=== PATIENT | male | born 1975 | race Caucasian/White ===

== ENCOUNTER 2020-02-11 19:14 | Emergency (ER) | payer BC, SELFPAY ==
[2020-02-11 19:15] VITALS: BP 186/106; PULSE 98; RESP 18; TEMP 36.6; O2SAT 98; BMI 26.6
[2020-02-11 20:22] LABS: Bacteria 0 SEEN /hpf (None Seen); Mucous, Urine 0 SEEN /hpf (<or=2+); Squamous Epithelial Cells - UA 0 SEEN /hpf (0-5)
[2020-02-11 20:32] LABS: Color, Urine Yellow (Yellow); Glucose, Dipstick Normal (Normal); Ketone-Dipstick Negative (Negative); Leukocyte Esterase-Dipstick 100 /ul (Negative); Nitrite-Dipstick Negative (Negative); Occult Blood-Urine 250 /ul (Negative); Protein-Dipstick 30 mg/dl (Negative); Specific Gravity, Urine 1.015 (1.002-1.030); Urine Bilirubin Dipstick Negative (Negative); Urine Clarity Cloudy (Clear); Urine Urobilinogen Normal (Normal); Urine pH 6.5 (5.0 - 8.0)
[2020-02-11 20:34] LABS: Absolute Lymphocyte Count 3.15 X10^3/uL (0.83-4.51); Absolute Neutrophil Count 4.8 X10^3/uL (2.0-7.7); Basophil# 0.07 X10^3/uL; Basophil% 0.8 % (0-1); Eosinophils% 2.2 % (0-5); Hematocrit 44.9 % (40-54); Hemoglobin 15.8 g/dL (13.0-16.5); Lymphocyte # 3.15 X10^3/ul (4.0); Lymphocyte % 34.6 % (19-41); Mean Corp Hgb Conc 35.2 g/dL (32-36); Mean Corpuscular Hgb 33.4 pg (27.0-32.0); Mean Corpuscular Volume 94.9 fL (80-94); Mean Platelet Vol. 8.5 fl (6.2-12.0); Monocyte# 0.85 X10^3/uL; Monocyte% 9.3 % (0-10); NRBC Flagged by Analyzer 0 % (0-5); Neutrophil # 4.81 X10^3/uL (2.7-7.7); Neutrophil % 52.8 % (47-70); Platelet Count 368 K/mm3 (150-450); RBC Distribution Width CV 11.9 % (11.6-14.6); RBC Distribution Width SD 40.4 fl (35.1-43.9); Red Blood Count 4.73 M/mm3 (4.6-6.2); White Blood Count 9.1 K/mm3 (4.4-11.0)
[2020-02-11 20:40] LABS: White Blood Cells 10-25 SEEN /hpf (0-5)
[2020-02-11 20:41] LABS: Red Blood Cells-Urine > 100 SEEN /hpf (0-5)
[2020-02-11] MEDS: 0.9% Normal Saline 1,000 ML 1000 ML IV (20:45)
[2020-02-11] MEDS: Morphine 4 MG/ML Syringe IV (20:46)
[2020-02-11] MEDS: Ondansetron 4 MG/2 ML Vial IV (20:46)
[2020-02-11 20:49] LABS: ALB/GLOB Ratio 1.4 RATIO (0.9-2.4); AST(SGOT) 14 U/L (15-37); Alanine Aminotransfer ALT/SGPT 26 U/L (16-61); Albumin, Serum 4.5 g/dL (3.2-5.0); Alkaline Phosphatase 95 U/L (45-117); Anion Gap 3 (5-15); BUN 11 mg/dL (7-18); BUN/Creat Ratio 14.2 RATIO (10-20); Calcium,Total 9.5 mg/dL (8.5-10.1); Chloride 110 mmol/L (98-107); Creatinine, Serum 0.77 mg/dL (0.70-1.30); EST Glomerular Filtration Rate 117 mL/min (>60); Est Glom Filt Rate - Afr Amer 142 mL/min (>60); Estimated Creatinine Clearance 124.97 ml/min; Globulin 3.2 g/dL (2.2-4.2); Glucose 86 mg/dL (74-106); Lactic Acid 0.7 mmol/L (0.4-1.9); Protein, Total 7.7 g/dL (6.4-8.2); Sodium Level 140 mmol/L (136-145)
--- NOTE | 2020-02-11 21:02 | ED.VISSUMM ---
- ER Visit Summary Date of Service: 02/11/20 Chief Complaint: Dysuria History of Present Illness: The patient is a 44 M who reports that on December 14 he had removal of a bladder cancer by Dr. Carrillo at [facility]. He states that the tumor had not spread into the muscle. He states that he has dysuria that began 5 days ago. Is had bilateral flank pain for the past 3 days. Patient describes the flank pain as an aching, sharp pain Zeta 10 at worst and 510 currently. Is worsened by nothing. Is relieved by remaining still and heat. He denies any nausea or vomiting. He denies any diarrhea. He does complain of dysuria, frequency, and hematuria. He denies any fever or chills. Physical Examination: Vitals: Stable. Afebrile. General: Well-nourished and well-developed. Head: Normocephalic atraumatic. Neck: Supple, no lymphadenopathy. No JVD. Nontender. Cardiovascular: Regular rate and rhythm. No murmurs. Respiratory: No respiratory distress. Clear to auscultation bilaterally. Abdominal: Soft, nontender, nondistended, normal bowel sounds. No guarding, rebound, or peritoneal signs. Back: Mild CVA tenderness bilaterally. Extremities: Nontender, no edema. Skin: Normal color, no rash. Neurologic: Alert and oriented ?3. Cranial nerves II through XII are intact. Normal strength and sensation. Psych: Normal affect. Test Results: CBC is normal. Chem-7 shows a chloride of 110. LFTs show an AST of 14. Lactic acid is 0.7. UA shows leukocytes, blood, 10-25 white blood cells, greater than 100 red blood cells, no bacteria. Emergency Department Course and Treatment: Patient was treated with a dose of morphine and Zofran IV. He was given a liter of normal saline. He was given Cipro p.o. He is resting comfortably. Treatment Plan: Patient's urine was sent for culture. He will be discharged with Cipro, Flora, and Zofran. Instructed to follow-up with his urologist in 1 week for another exam. He is instructed to establish with Dr. Hodge is a primary care physician in [facility]. Return to the emergency department for any worsening symptoms. Disposition: To home in improved and stable condition. Impression: 1. Urinary tract infection. 2. History of bladder cancer. This note was generated with PowerReview[employer] software. It may contain incorrect words, spelling, and punctuation that were not noted in review of the chart prior to signing ED Disposition - Plan for ED Patient: Disposition: Home or Assisted Living Instructions: Understanding Urinary Tract Infections (UTIs) Prescriptions: Ciprofloxacin [Cipro] 500 mg PO BID #14 tab Prescription Printed Hydrocodone Bitart/Apap 5-325 [Flora 5MG-325MG] 1 tab PO Q4H PRN PRN 2 Days #10 tab PRN Reason: Pain Prescription Printed Phenazopyridine HCl [Pyridium] 200 mg PO BID PRN PRN #10 tab PRN Reason: Pain Prescription Printed Ondansetron [Zofran Odt] 4 mg PO Q8H PRN PRN #10 tab PRN Reason: Nausea Prescription Printed Referrals: Ban Hodge MD [STAFF PHYSICIAN] - Doctor,Your [STAFF PHYSICIAN] - 3-5 Days if not improving
[2020-02-11] MEDS: Phenazopyridine 95 MG Tablet 190 MG PO (21:40)
[2020-02-11] MEDS: Ciprofloxacin 500 MG Tablet PO (21:40)
[2020-02-11 21:45] VITALS: BP 162/102; PULSE 86; RESP 16; O2SAT 99
== END 2020-02-11 21:47 | disposition home or self-care (01) ==
LOC: ED 20:41
PROVIDERS: Emergency Provider Emergency Medicine
DX: N39.0 Urinary tract infection, site not specified (principal); Z85.51 Personal history of malignant neoplasm of bladder
CPT/HCPCS: 80053; 81001; 83605; 85025; 87086; 96361; 96374; 96375; 99284; J7030; J2405